=== PATIENT | male | born 1950 | race Caucasian/White ===

== ENCOUNTER 2017-04-03 14:28 | Inpatient (IN) | payer OTHER ==
[2017-04-03] MEDS ORDERED: fentaNYL 100 MCG/2 ML INJ IVP ONE (14:53)
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
[2017-04-03] MEDS ORDERED: IOPAMIDOL (ISOVUE-300) 100 ML BTL ONE (14:58)
[2017-04-03 15:07] LABS: % IMMATURE GRANULYOCYTES 0.6 % (0.0-1.1); ABSOLUTE IMMATURE GRANULOCYTES 0.07 10^3/uL (0.00-0.10); ADD DIFF? NO; ADD MORPH? NO; ADD SCAN? NO; ATYPICAL LYMPHOCYTE FLAG 0 (0-99); FRAGMENT RBC FLAG 0 (0-99); HEMATOCRIT 50.9 % (40.0-51.0); HEMOGLOBIN 15.9 g/dL (13.7-17.5); LEFT SHIFT FLG 0 (0-99); LIPEMIA HEMOLYSIS FLAG 80 (0-99); MEAN CELL HEMOGLOBIN CONCENTR. 31.2 g/dL (32.4-36.7); MEAN CELL VOLUME 92.9 fL (81.5-99.8); MEAN PLATELET VOLUME 12.4 fL (8.7-11.7); PLATELET CLUMPS FLAG 0 (0-99); PLATELET COUNT 153 10^3/uL (150-400); RED BLOOD CELL COUNT 5.48 10^6/uL (4.40-6.38); RED CELL DISTRIBUTION WIDTH 15.3 % (11.5-15.2)
[2017-04-03 15:16] LABS: INR 1.63 (0.83-1.16); PROTIME(PATIENT) 19.4 SEC (12.0-15.0)
[2017-04-03 15:21] LABS: ANION GAP 14 mEq/L (8-16); CALCIUM 9.5 mg/dL (8.5-10.4); CARBON DIOXIDE 28 mEq/l (22-31); CHLORIDE 101 mEq/L (97-110); CREATININE 0.9 mg/dL (0.7-1.3); GLOMERULAR FILTRATION RATE > 60; GLUCOSE 101 mg/dL (70-100); POTASSIUM 4.8 mEq/L (3.5-5.2); SODIUM 143 mEq/L (134-144)
[2017-04-03] MEDS ORDERED: NICOTINE 21 MG/24 HR PATCH TD ONE (18:02)
[2017-04-03] MEDS ORDERED: HYDROmorphONE/DILAUDID 1 MG/ML SYR IVP ONE ×2 (18:05→19:37)
[2017-04-03] MEDS ORDERED: IOPAMIDOL (ISOVUE 370) 100 ML BTL IV ONE (18:30)
[2017-04-03] MEDS: ACETAMINOPHEN 325 MG TAB PO PRN ×2 (19:44→19:48)
[2017-04-03] MEDS ORDERED: ALBUTEROL 200 PUFFS/18 GM MDI IH PRN (21:10)
[2017-04-03] MEDS ORDERED: FLUTICASONE NASAL 120 SPRAYS/16 GM MDI EACHNARE PRN (21:10)
--- NOTE | 2017-04-03 21:20 | PDCONSULT ---
Lute Packer Or Applier Note: Trauma Consult/Admit note dictated S MD Vernon, FACS
[2017-04-03] MEDS: traMADol 50 MG TAB PO PRN (22:03)
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
[2017-04-03] MEDS: oxyCODONE IR 5 MG TAB PO PRN (23:42)
[2017-04-04] MEDS: HYDROmorphONE/DILAUDID 1 MG/ML SYR IVP PRN ×4 (01:03→17:02)
[2017-04-04] MEDS: oxyCODONE IR 5 MG TAB PO PRN ×4 (04:02→15:20)
--- NOTE | 2017-04-04 04:39 | GCON ---
[f rep st] CONSULTATION ER CONSULTATION DATE OF CONSULTATION: 04/03/2017 The patient was seen and examined by myself and Dr. Deshawn Delgadillo. CHIEF COMPLAINT: Patient fell off the roof, has lower back pain. HISTORY OF PRESENT ILLNESS: The patient is a 67-year-old male who was on the roof today and fell off landing on a lattice that was covering a hot tub. Patient does not believe he hit his head or had any loss of consciousness. Patient believes he fell landing on his back and his bottom. Patient denies any weakness or paresthesias in his bilateral lower extremities. Denies any issues with his bowel or bladder. Patient would like to go home. REVIEW OF SYSTEMS: A 10-point review of systems were reviewed and negative aside from what was mentioned in the HPI. PAST MEDICAL HISTORY: Includes COPD, sleep apnea, polyrheumatica arthralgia, hypertension, atrial fibrillation, hyperlipidemia, and congenital heart disease. PAST SURGICAL HISTORY: Includes bilateral carpal tunnel, left shoulder rotator cuff surgery, multiple surgeries on bilateral knees, and a hemorrhoidectomy. FAMILY HISTORY: Patient's mother at the age of 87. She had heart disease. Patient's father at the age of 45. He had cancer. SOCIAL HISTORY: The patient smokes cigarettes for 50 years. States he is trying to quit. The patient drinks alcohol socially. Smokes marijuana. OCCUPATION: He is disabled and collects social security. ALLERGIES: No known drug allergies. MEDICATIONS: Include Coumadin alternating with 5 mg and 10 mg doses, Zocor 10 mg, prednisone 4 mg, aspirin 81 mg, diltiazem 240 mg, lisinopril 5 mg, Lasix 20 mg, Spiriva, Advair, albuterol, tramadol. The patient is on oxygen at 4 L around the clock. PHYSICAL EXAMINATION: VITAL SIGNS: Blood pressure is 125/62, heart rate is 63 , respiratory rate is 18, oxygen saturation is 90%. He was on room air at the time. Temperature is 36.5 degree Celsius. HEENT: Head is normocephalic and atraumatic. His pupils are equal, round, and reactive to light. EOMI is intact. Full visual damian by confrontation. NECK: Soft and supple. BACK: He has some midline tenderness in his lower back to palpation. He has full range of motion with flexion, extension, lateral bearing rotation. RESPIRATORY : Deferred. CARDIAC: Deferred. ABDOMEN: Soft and nontender. GENITOURINARY : Deferred. RECTAL: Deferred. NEUROLOGIC: The patient is awake, alert, and oriented to name, place, location, date, time, and situation. His memory is intact to immediate, past, and current events. Speech shows no aphasia or dysphonia. Cranial nerves 2-12 are grossly intact. Motor: The patient has 5/ 5 strength in all muscle groups in the bilateral upper and lower extremities that includes the deltoids, biceps, triceps, brachioradialis, wrist flexion and extensors, lathe sander, intrinsic fingers, iliopsoas, quadriceps, hamstrings, plantar flexion and dorsiflexion. On EHL testing sensation is grossly intact to light touch throughout all dermatomal distributions in the upper and lower extremities. He has a negative straight leg raise bilaterally. Negative MARCUS test bilaterally. Reflexes biceps, triceps, brachioradialis, knee jerk, ankle jerk are 2+ out of 4. Toes are downgoing bilaterally. Herson sign is negative. Babinski is negative. No evidence of clonus. DIAGNOSTICS: CT of the cervical spine without contrast demonstrates no acute posttraumatic abnormality identified. CT of the brain without contrast shows an equivocal tiny mid brain hemorrhage. Head CT is otherwise within normal limits. CT of the lumbar spine with contrast demonstrates an acute minimal L2 compression fracture. CT of the thoracic spine with contrast demonstrates an acute minimal compression fracture of T12. ASSESSMENT AND PLAN: Patient will be admitted to the step-down unit for observation. We will hold his Coumadin and aspirin. CT angio of the brain will be ordered to further look at his vessels. We may consider ordering a brace for his small thoracic and lumbar compression fractures. However, due to his body habitus, he may not be able to tolerate a brace. We will watch him closely for any changes in his neurological status. The patient was seen and examined by myself and Dr. Rafaela Delgadillo in the emergency room on April 03, 2017 , at 1645. /[id number]/MODL MTDD
[2017-04-04 07:39] LABS: HEMATOCRIT 43.6 % (40.0-51.0); HEMOGLOBIN 13.4 g/dL (13.7-17.5); MEAN CELL HEMOGLOBIN 28.9 pg (27.9-34.1); MEAN CELL HEMOGLOBIN CONCENTR. 30.7 g/dL (32.4-36.7); RED BLOOD CELL COUNT 4.64 10^6/uL (4.40-6.38); RED CELL DISTRIBUTION WIDTH 15.6 % (11.5-15.2)
[2017-04-04 07:50] LABS: INR 1.99 (0.83-1.16); PROTIME(PATIENT) 22.7 SEC (12.0-15.0)
[2017-04-04] MEDS: methylPREDNISolone 4 MG TAB PO SCH (08:00)
[2017-04-04] MEDS: LISINOPRIL 5 MG TAB PO SCH (08:00)
[2017-04-04] MEDS: DULoxetine 20 MG CAP PO SCH (08:01)
[2017-04-04] MEDS: DILTIAZEM XR 240 MG CAP PO SCH (08:01)
[2017-04-04] MEDS: FUROSEMIDE 40 MG TAB PO SCH ×2 (08:01→15:20)
[2017-04-04] MEDS: TIOTROPIUM 18 MCG IH SCH (08:25)
--- NOTE | 2017-04-04 08:27 | WOCRNPDOC ---
WOCRN Advanced Assessment Note - Skin Integrity Problem, Advanced Assess Left Anterior Knee Excoriation Dressing Type: ABD Pad Dressing Description: Clean/Dry, Intact Exudate Amount: Minimal Exudate Characteristic(s): Serosanguinous Integumentary Issue Intervention: Visualized Under Dressing Mayco Wound Tissue: Erythema Wound Bed Constitution: Smooth Tissue Site Measurement - Head-to-Toe Length X Width X Depth (cm): 7x4.5x0.3 Skin Integrity Problem Comment: Mixed full and partial thickness abrasion. No sign of debris or infection although mayco wound tissue is inflamed from the injury. Wound care will sign off. Please reconsult prn.
--- NOTE | 2017-04-04 08:51 | TRAUMAPN ---
Assessment/Plan: 67-year-old male status post fall off a roof with possible intra cerebral hemorrhage, T12/L2 compression fractures Tertiary exam Neuro: Nonfocal, moves all extremities, strength intact, normal sensation Pulmonary: No crepitus, no step-offs, no tenderness, stable on room air Cardiovascular: Hemodynamically stable Abdomen: Soft, nondistended, nontender, good bowel sounds Renal: Voiding, urine output appropriate, creatinine stable. Musculoskeletal, has some bumps and bruises on right upper extremity, left upper extremity, left knee. Imaging reviewed, no signs of acute fracture. Moving all extremities appropriately Skin: Abrasions as noted above, no new findings Disposition: CT angio of the head plan for this morning, neurosurgery not planning any brace or procedures for his compression fractures. Plan will depend on CTA this a.m.. Defer to Neurosurgery for ultimate plan. No new findings on tertiary exam per trauma surgery today. Subjective: Doing okay, complains of aches and pains an extremities, nonfocal neuro exam Objective: Vital Signs Temp Pulse Resp BP Pulse Ox 36.7 C 69 17 127/67 H 95 04/04/17 07:58 04/04/17 08:01 04/04/17 07:58 04/04/17 08:01 04/04/17 07:58 Laboratory Results 04/04/17 07:30 04/03/17 04/04/17 04/05/17 05:59 05:59 05:59 Intake Total 1000 Output Total 925 Balance 75 PT 22.7 SEC (12.0-15.0) H 04/04/17 07:30 INR 1.99 (0.83-1.16) H 04/04/17 07:30 - C-Spine Clearance Cervical Spine Cleared: Yes Physical Exam - Physical Exam General Appearance: WD/WN, alert, no apparent distress EENT: PERRL/EOMI, normal ENT inspection, pharynx normal, TMs normal Neck: non-tender, full range of motion, supple, normal inspection Respiratory: chest non-tender, lungs clear, normal breath sounds Cardiac/Chest: normal peripheral pulses, regular rate, rhythm Abdomen: normal bowel sounds, non-tender, soft Back: Normal inspection Skin: other (Some abrasions on right upper extremity, left knee.) Lymphatic: no adenopathy Extremities: normal range of motion, non-tender, normal inspection, normal capillary refill Neuro/Psych: no motor/sensory deficits, alert, normal mood/affect, oriented x 3
[2017-04-04] MEDS ORDERED: MELOXICAM 15 MG PO SCH (09:00)
[2017-04-04] MEDS: FLUTICASONE/SALMETER 250/50MCG DISKUS IH SCH ×2 (09:42→19:42)
[2017-04-04] MEDS ORDERED: IOPAMIDOL (ISOVUE 370) 100 ML BTL IV ONE (09:57)
--- NOTE | 2017-04-04 11:17 | NEUSURGPN ---
Assessment/Plan: 67 yr old male s/p fall off mauricio. Tiny inferior cerebellar peduncle bleed, mild T12, L2 compression fractures Plan: -Will get head CTA today to assess vessels -Consult Recovery Operator Helper for Jewitt brace -PT/OT -Continue to hold ASA and Coumadin -Will continue to follow neuro exam -May transfer to [facility] Surg -Call Neurosurgery with any questions/concerns Discussed with Dr Delgadillo Subjective: Patient having lower back pain Objective: AxO x3 EOMI PERRLA NAD VSS MAEx4 Motor 5/5 BUE/BLE Neuro Check Frequency: per routine Urinary Catheter in Place: No - Physician Discussed Patient with : Elie Patient Seen by : Elie Neurosurgery Physical Exam - Vitals, I&O, Labs I and O 04/03/17 04/04/17 04/05/17 05:59 05:59 05:59 Intake Total 1000 Output Total 925 Balance 75 Weight 134.1 kg Intake: Oral (ml) 1000 Output: Urine (ml) 925 Urinal 925 Other: Intake Quantity Yes Sufficient Number of Voids Urinal 1 Vital Signs Temp Pulse Resp BP Pulse Ox 36.7 C 69 17 127/67 H 95 04/04/17 07:58 04/04/17 08:01 04/04/17 07:58 04/04/17 08:01 04/04/17 07:58 Laboratory Results 04/04/17 07:30 ICD10 Worksheet Patient Problems: Problems Problem Status Onset Compression fracture of lumbar vertebra Acute Compression fracture of thoracic vertebra Acute Contusion of arm, right Acute Intracranial hemorrhage Acute Multiple abrasions Acute Chronic respiratory failure Active Severe chronic obstructive pulmonary disease Active Orthostatic hypotension Acute Polymyalgia rheumatica Acute Afib Chronic Chest pain Chronic Diastolic heart failure Chronic Dyslipidemia Chronic Essential hypertension Chronic Obstructive sleep apnea syndrome Chronic Pulmonary hypertension Chronic
[2017-04-04] MEDS: traMADol 50 MG TAB PO PRN (13:23)
[2017-04-04] MEDS ORDERED: WARFARIN SODIUM 5 MG TAB PO SCH ×2 (16:00→18:00)
[2017-04-04] MEDS: NICOTINE 21 MG/24 HR PATCH TD SCH (17:02)
[2017-04-04] MEDS: morphINE SR 15 MG TAB PO SCH (18:35)
[2017-04-04] MEDS ORDERED: NON-FORMULARY NEW DRUG (Simvastatin [Zocor] 10 MG) PO SCH (21:00)
[2017-04-04] MEDS ORDERED: PRAVASTATIN SODIUM 20 MG TAB PO SCH (21:00)
--- NOTE | 2017-04-05 07:35 | NEUSURGPN ---
Assessment/Plan: Dr Delgadillo reviewed CTA brain, no bleeding noted. Patient may restart his Coumadin and ASA now. We will add MS Jarrett in effort to help with pain control for his mild compression fractures. We are hoping he is able to discharge home tomorrow. Assessment/Plan: 67 yr old male s/p fall off mauricio. Tiny inferior cerebellar peduncle bleed, mild T12, L2 compression fractures Plan: -CTA brain: no hemorrhage. Coumadin and ASA resumed -Wear [place] brace when out of bed -PT/OT -Pain control -Will continue to follow neuro exam -Plan home for later today if pain adequately controlled and cleared by trauma -Call Neurosurgery with any questions/concerns Subjective: No lower extremity symptoms. Back pain controlled. Objective: PERRL. EOMI Facial expression symmetrical Muscle strength full at 5/5 Sensation intact - Physician Discussed Patient with : [facility] Physical Exam - Vitals, I&O, Labs I and O 04/04/17 04/05/17 04/06/17 05:59 05:59 05:59 Other: Intake Quantity Yes Sufficient Vital Signs Temp Pulse Resp BP Pulse Ox 36.8 C 72 16 123/55 H 92 04/05/17 03:28 04/05/17 03:28 04/05/17 03:28 04/05/17 03:28 04/05/17 03:28 ICD10 Worksheet Patient Problems: Problems Problem Status Onset Compression fracture of lumbar vertebra Acute Compression fracture of thoracic vertebra Acute Contusion of arm, right Acute Intracranial hemorrhage Acute Multiple abrasions Acute Chronic respiratory failure Active Severe chronic obstructive pulmonary disease Active Orthostatic hypotension Acute Polymyalgia rheumatica Acute Afib Chronic Chest pain Chronic Diastolic heart failure Chronic Dyslipidemia Chronic Essential hypertension Chronic Obstructive sleep apnea syndrome Chronic Pulmonary hypertension Chronic
[2017-04-05 08:26] VITALS: BP 125/56; PULSE 63; RESP 18; TEMP 98.1; O2SAT 91
[2017-04-05] MEDS: oxyCODONE IR 5 MG TAB PO PRN (08:59)
[2017-04-05] MEDS ORDERED: Meloxicam [Meloxicam] 15 MG PO SCH (09:00)
[2017-04-05] MEDS: DILTIAZEM XR 240 MG CAP PO SCH (09:00)
[2017-04-05] MEDS ORDERED: ASPIRIN 81 MG CHEWABLE TAB PO SCH (09:00)
[2017-04-05] MEDS: DULoxetine 20 MG CAP PO SCH (09:01)
[2017-04-05] MEDS: morphINE SR 15 MG TAB PO SCH (09:01)
[2017-04-05] MEDS: LISINOPRIL 5 MG TAB PO SCH (09:01)
[2017-04-05] MEDS: methylPREDNISolone 4 MG TAB PO SCH (09:01)
[2017-04-05] MEDS: FUROSEMIDE 40 MG TAB PO SCH (09:01)
[2017-04-05] MEDS: NICOTINE 21 MG/24 HR PATCH TD SCH (09:01)
[2017-04-05] MEDS: TIOTROPIUM 18 MCG IH SCH (09:02)
[2017-04-05] MEDS: FLUTICASONE/SALMETER 250/50MCG DISKUS IH SCH (09:03)
--- NOTE | 2017-04-05 09:11 | TRAUMAPN ---
<Shabnam Polon - Last Filed: 04/05/17 09:12> Assessment/Plan: LLE abrasion antibiotic ointment Apptwith NSG 1-2 weeks Pain controlled D/c home today Objective: Vital Signs Temp Pulse Resp BP Pulse Ox 36.7 C 63 18 125/56 H 91 L 04/05/17 08:21 04/05/17 09:00 04/05/17 08:21 04/05/17 09:01 04/05/17 08:21 PT 22.7 SEC (12.0-15.0) H 04/04/17 07:30 INR 1.99 (0.83-1.16) H 04/04/17 07:30 - C-Spine Clearance Cervical Spine Cleared: Yes <Es De La Torre - Last Filed: 04/05/17 12:19> Assessment/Plan: 67 yo fall from roof with ICH - no hemorrhage on repeat. Resume Coumadin and T12/L2 compression - Continue brace when out of bed Follow up with Dr. Delgadillo in 2 weeks. Follow up with [facility] for baseline co-morbidities such as COPD, HTN and A fib S: Eager to go home Objective: Vital Signs Temp Pulse Resp BP Pulse Ox 36.7 C 63 18 125/56 H 91 L 04/05/17 08:21 04/05/17 09:00 04/05/17 08:21 04/05/17 09:01 04/05/17 08:21 PT 22.8 SEC (12.0-15.0) H 04/05/17 09:20 INR 2.00 (0.83-1.16) H 04/05/17 09:20 Physical Exam - Physical Exam General Appearance: WD/WN, alert, no apparent distress, obese EENT: PERRL/EOMI, normal ENT inspection, No scleral icterus (R), No scleral icterus (L), No hearing deficit Neck: non-tender Respiratory: lungs clear, normal breath sounds Cardiac/Chest: regular rate, rhythm, other (in brace) Abdomen: normal bowel sounds, non-tender, soft Skin: warm/dry, other (abrasion on left knee and hematoma on r forearm) Extremities: normal range of motion, non-tender Neuro/Psych: no motor/sensory deficits, alert, normal mood/affect
[2017-04-05 09:38] LABS: PROTIME(PATIENT) 22.8 SEC (12.0-15.0)
--- NOTE | 2017-04-05 12:58 | GDS ---
[f rep st] DISCHARGE SUMMARY ADMITTING DIAGNOSIS: Multitrauma status post fall from ladder off roof. SECONDARY DIAGNOSES: Intracranial hemorrhage, T12-L2 compression fractures, right 3rd and 6th rib f ractures, chronic obstructive pulmonary disease requiring oxygen at home, chronic atrial fibrillatio n on anticoagulation, asthma, fibromyalgia, polymyalgia rheumatica, obstructive sleep apnea. REASON FOR ADMISSION: The patient is a 67-year-old man who was doing work on a roof when he lost ba kiki and fell 10-12 feet. He was admitted for further workup, observation, pain control. HOSPITAL COURSE: He was followed by Neurosurgery through his hospital course. On head CT on admiss ion he was found to have a tiny mid brain hemorrhage. C-spine was negative for acute fracture. He also had evidence of minimal compression fracture of T12 and L1 in addition to right anterior 3rd ri b fracture and right 6th rib fracture. He had a head CTA on 04/04/2017 which was normal. Neurosurg mariama requested that he wear a [place] brace when out of bed. He was seen by the wound care nurse for abrasion of his left knee. He was restarted on his Coumadin and aspirin on 04/04/2017. On the day of discharge, his pain was adequately controlled with oral pain medication. He was ambulating indep endently, tolerating a regular diet, and had return of bowel function. DISCHARGE CONDITION: He is being discharged home in stable condition. Pain is controlled. Ambulat ing independently. Tolerating a regular diet. DISCHARGE MEDICATIONS: He was sent home with a prescription for Oxy IR as well as morphine SR. ins tructed to resume home medicines. Please see EMR for further detail. DISCHARGE INSTRUCTIONS AND FOLLOWUP: He will follow up with Dr. Delgadillo of Neurosurgery in 2 weeks. He will wear the brace when out of bed. He will also follow up with his primary care and trauma as needed. He understands to call with any worsening symptoms, questions or concerns. /[id number]/MODL
[2017-04-06] MEDS ORDERED: WARFARIN SODIUM 5 MG TAB PO SCH ×2 (16:00→21:10)
== END 2017-04-05 12:30 | disposition home or self-care (01) | DRG 86 ==
LOC: F2N 21:39 → F3N 04-04 13:17 → UNDODISOB 04-04 13:19 → OBSVTOIN 04-04 17:30
PROVIDERS: ADMIT Neurological Surgery; ATTEND Neurological Surgery
CPT/HCPCS: 82947-QW; 96374; 97161-GP; 97165-GO; G0378; G8978-GP-CI; G8979-GP-CI; G8980-GP-CI; G8987-GO-CI; G8988-GO-CI; G8989-GO-CI; J1170; J3010; Q9967

== ENCOUNTER → 2017-05-06 | Outpatient (CLI) | payer OTHER | LOC: FIMAGING 12:02 | PROVIDERS: ATTEND Neurological Surgery | DX: S32.000D Wedge compression fracture of unspecified lumbar vertebra, subsequent encounter for fracture with routine healing (principal) ==

== ENCOUNTER → 2017-06-05 | Outpatient (CLI) | payer OTHER | LOC: FIMAGING 09:09 | PROVIDERS: ATTEND Neurological Surgery | DX: S32.020D Wedge compression fracture of second lumbar vertebra, subsequent encounter for fracture with routine healing (principal); S22.080D Wedge compression fracture of T11-T12 vertebra, subsequent encounter for fracture with routine healing ==

== ENCOUNTER → 2017-07-16 | Outpatient (CLI) | payer OTHER, MEDICAID | LOC: FIMAGING 12:52 → EDSTATUS 12:53 | PROVIDERS: ATTEND Neurological Surgery | DX: S32.000A Wedge compression fracture of unspecified lumbar vertebra, initial encounter for closed fracture (principal); X58.XXXA Exposure to other specified factors, initial encounter; K80.20 Calculus of gallbladder without cholecystitis without obstruction ==